=== PATIENT | male | born 2000 | race Two or more races ===

== ENCOUNTER 2023-03-19 12:36 | Emergency (ER) | payer OTHER ==
[~2023-03-19] VITALS: Ht 175.3 cm; Wt 76.7 kg
[2023-03-19 13:02] VITALS: BP 135/72; PULSE 66; RESP 16; O2SAT 100
== END 2023-03-19 15:46 | disposition left against medical advice (07) ==
LOC: ER 12:36
DX: M25.571 Pain in right ankle and joints of right foot (principal); Z53.21 Procedure and treatment not carried out due to patient leaving prior to being seen by health care provider; X50.1XXA Overexertion from prolonged static or awkward postures, initial encounter; Y93.89 Activity, other specified; Y92.89 Other specified places as the place of occurrence of the external cause; Y99.8 Other external cause status